=== PATIENT | female | born 1995 | race Caucasian/White ===

== ENCOUNTER 2024-10-05 10:25 | Emergency (ER) | payer OTHER ==
[2024-10-05 10:34] VITALS: BP 121/75; PULSE 94; RESP 18; TEMP 98; BMI 25.8
[2024-10-05] MEDS ORDERED: LIDOCAINE 4% PATCH TP ONE ×2 (11:23→11:29)
[2024-10-05] MEDS ORDERED: KETOROLAC TROMETHAMINE 30 MG/1 ML VIAL ONE (11:23)
[2024-10-05] MEDS ORDERED: CycloBENZAprine HCL 5 MG TABLET ONE (11:24)
[2024-10-05] MEDS: KETOROLAC TROMETHAMINE 30 MG/1 ML VIAL IM ONE (11:30)
[2024-10-05] MEDS: CycloBENZAprine HCL 10 MG TABLET (FP) PO ONE (11:31)
[2024-10-05] MEDS: LIDOCAINE 5% TOPICAL PATCH TP ONE (11:31)
[2024-10-05 12:22] LABS: EPI CELLS >36 /uL (0-25.1); HYALINE CASTS 1 /uL (0-3.1); PH,URINE 6.5 (5.0-8.0); URINE APPEARANCE CLOUDY; URINE BACTERIA 761 /uL (0-1359); URINE BILIRUBIN NEGATIVE (NEGATIVE); URINE COLOR YELLOW; URINE GLUCOSE (UA) NEGATIVE (NEGATIVE); URINE KETONE NEGATIVE (NEGATIVE); URINE LEUK ESTERASE 2+ (NEGATIVE); URINE NITRITE NEGATIVE (NEGATIVE); URINE PROTEIN TRACE (NEGATIVE); URINE WBC 67 /uL (0-25.8)
[2024-10-05] MEDS ORDERED: ACETAMINOPHEN 500 MG TABLET (FP) ONE (12:27)
[2024-10-05] MEDS: ACETAMINOPHEN 500 MG TABLET (FP) PO ONE (12:28)
[2024-10-05 12:33] LABS: URINE RBC 60 /uL (0-23.9)
[2024-10-05] MEDS ORDERED: LIDOCAINE PATCH REMOVAL MC SCH (22:00)
== END 2024-10-05 13:37 | disposition home or self-care (01) ==
LOC: JERFT 10:25
PROC: 3E0233Z Introduction of Anti-inflammatory into Muscle, Percutaneous Approach (ICD-10-PCS; principal; 2024-10-05)
DX: M54.50 Low back pain, unspecified (principal); M79.662 Pain in left lower leg
CPT/HCPCS: 72100-TC-FY; 81003; 87086; 99284-25